=== PATIENT | female | born 1990 | race Caucasian/White ===

== ENCOUNTER 2016-09-30 14:13 | Outpatient (CLI) | payer OTHER ==
[~2016-09-30] VITALS: Ht 162.6 cm; Wt 84.6 kg
[~2016-09-30 14:13] MED LIST: CHOL100062 PO; IBUP-1542 PO
[2016-09-30 14:39] VITALS: Ht 162.6 cm; Wt 84.6 kg
[2016-09-30 14:40] VITALS: BP 119/69; PULSE 91; RESP 20
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
== END 2016-09-30 16:00 | disposition home or self-care (01) ==
LOC: OBT 14:13 → OBG 14:16 → OBT 16:00
PROVIDERS: ATTEND Obstetrics & Gynecology
DX: O9A.213 Injury, poisoning and certain other consequences of external causes complicating pregnancy, third trimester (principal); Z3A.33 33 weeks gestation of pregnancy
CPT/HCPCS: 76818; Z7500; G0463

== ENCOUNTER 2016-10-31 10:27 | Outpatient (CLI) | payer OTHER ==
[~2016-10-31] VITALS: Ht 154.9 cm; Wt 90.2 kg
--- NOTE | 2016-10-31 10:55 | RADRPT ---
PROCEDURE: US OB biophysical profile. CLINICAL INDICATION: decreased movements, pain TECHNIQUE: Multiple sonographic images of the pelvis were obtained. The images were reviewed on a PACS workstation. COMPARISON: 09/30/16 FINDINGS: There is a single viable intrauterine gestation. Cardiac activity is present with 148 beats per min nava. There is a vertex presentation. The placenta is posterior. There is no evidence of placental abruption. There is a normal amount of amniotic fluid with an ALBERTA = 16.7 cm. Biophysical profile: movement 2/2 tone 2/2. breathing 2/2 ALBERTA 2/2 Total 09/13 RPTAT: AA . IMPRESSION: Normal biophysical profile. . .Ton Joy MD, MD Date Time Electronically viewed and signed by .Ton Joy MD, MD on 10/31/2016 10:54 .S/
[2016-10-31 11:07] VITALS: BP 127/81; PULSE 84; RESP 18; Ht 154.9 cm; Wt 90.2 kg
[2016-10-31] MEDS ORDERED: FERR325T5 PO (11:11)
[2016-10-31] MEDS ORDERED: CHOL400C PO (11:11)
[2016-10-31] MEDS ORDERED: DOCO200C5 PO (11:11)
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
== END 2016-10-31 11:55 | disposition home or self-care (01) ==
LOC: L-D 10:27 → OBT 10:27
PROVIDERS: ATTEND Obstetrics & Gynecology
DX: O36.8130 Decreased fetal movements, third trimester, not applicable or unspecified (principal); Z3A.37 37 weeks gestation of pregnancy
CPT/HCPCS: 76818; Z7500; G0463

== ENCOUNTER 2016-11-07 13:16 | Inpatient (IN) | payer OTHER ==
[~2016-11-07] VITALS: Ht 154.9 cm; Wt 90.5 kg
[~2016-11-07 13:16] MED LIST changes: -CHOL100062 PO; +CHOL400C PO; +DOCO200C5 PO; +FERR325T5 PO; -IBUP-1542 PO
[2016-11-07 13:31] VITALS: Ht 154.9 cm; Wt 90.5 kg
[2016-11-07 13:32] VITALS: BP 125/79; PULSE 94
[2016-11-07 14:03] LABS: BASOPHILS % 0.3 % (0.0-2.0); EOSINOPHILS % 0.4 % (0.0-7.0); HEMATOCRIT 36.9 % (37.0-47.0); HEMOGLOBIN 12.4 g/dl (12.0-16.0); LYMPHOCYTES # 1.2 10^3/ul (0.8-2.9); LYMPHOCYTES % 16.9 % (15.0-51.0); MEAN CORPUSCULAR HEMOGLOBIN 28.8 pg (29.0-33.0); MEAN CORPUSCULAR HGB CONC 33.6 g/dl (32.0-37.0); MEAN CORPUSCULAR VOLUME 85.6 fl (82.0-101.0); MEAN PLATELET VOLUME 12.7 fl (7.4-10.4); MONOCYTE # 0.7 10^3/ul (0.3-0.9); MONOCYTES % 10.6 % (0.0-11.0); NEUTROPHIL # 4.9 10^3/ul (1.6-7.5); NEUTROPHILS % 71.2 % (39.0-77.0); PLATELET COUNT 141 10^3/UL (140-415); RED BLOOD COUNT 4.31 10^6/ul (4.20-5.40); RED CELL DISTRIBUTION WIDTH 13.9 % (11.5-14.5); WHITE BLOOD COUNT 6.9 10^3/ul (4.8-10.8)
[2016-11-07 14:24] LABS: ALBUMIN 3.3 g/dl (3.3-4.9); ALBUMIN/GLOBULIN RATIO 1.06; BILIRUBIN,INDIRECT 0.1 mg/dl (0-1.1); BILIRUBIN,TOTAL 0.1 mg/dl (0.2-1.3); CALCIUM 9.2 mg/dl (8.4-10.2); CREATININE 0.6 mg/dl (0.44-1.00); POTASSIUM 3.8 mmol/L (3.5-5.1); TOTAL PROTEIN 6.4 g/dl (6.1-8.1); URIC ACID 6.5 mg/dl (3.1-7.9)
[2016-11-07 17:31] LABS: ADD UMIC YES; UR ASCORBIC ACID NEGATIVE (NEGATIVE); UR BACTERIA FEW /HPF (NONE SEEN); UR BILIRUBIN (Dip) NEGATIVE (NEGATIVE); UR BLOOD (Dip) NEGATIVE (NEGATIVE); UR CLARITY SLIGHTLY CLOUDY (CLEAR); UR COLOR YELLOW (YELLOW); UR GLUCOSE (Dip) NEGATIVE (NEGATIVE); UR KETONES (Dip) NEGATIVE (NEGATIVE); UR LEUKOCYTE ESTERASE (Dip) 3+ Leu/ul (NEGATIVE); UR MUCUS FEW /HPF (NONE SEEN); UR NITRITE (Dip) NEGATIVE (NEGATIVE); UR RBC 1 /HPF (0-5); UR SPECIFIC GRAVITY (Dip) 1.014 (1.003-1.030); UR SQUAMOUS EPITHELIAL CELL FEW /HPF (FEW); UR TOTAL PROTEIN (Dip) NEGATIVE (NEGATIVE); UR UROBILINOGEN (Dip) NEGATIVE (NEGATIVE)
[2016-11-07] MEDS: LACTATED RINGER'S 1,000 ML IV SCH ×3 (17:59→23:16)
[2016-11-07] MEDS ORDERED: CARBOPROST 250 MCG INJ IM PRN ×2 (18:00→23:30)
[2016-11-07] MEDS ORDERED: OXYTOCIN 30 UNITS/LR 500 ML IV PRN ×2 (18:00→23:30)
[2016-11-07] MEDS ORDERED: CEFAZOLIN 2 GM/50 ML (PMX) 50 ML IV SCH (18:00)
[2016-11-07] MEDS ORDERED: MISOPROSTOL 200 MCG TAB PR PRN ×2 (18:00→23:30)
[2016-11-07] MEDS ORDERED: METHYLERGONOVINE 0.2 MG INJ IM PRN ×2 (18:00→23:30)
[2016-11-07] MEDS ORDERED: OXYTOCIN 30 UNITS/LR 500 ML IV SCH (18:00)
[2016-11-07 18:34] LABS: BASOPHILS % 0.3 % (0.0-2.0); EOSINOPHILS % 0.3 % (0.0-7.0); HEMOGLOBIN 12.3 g/dl (12.0-16.0); LYMPHOCYTES # 1.6 10^3/ul (0.8-2.9); MEAN CORPUSCULAR HEMOGLOBIN 28.9 pg (29.0-33.0); MEAN CORPUSCULAR HGB CONC 33.2 g/dl (32.0-37.0); MEAN CORPUSCULAR VOLUME 86.9 fl (82.0-101.0); MEAN PLATELET VOLUME 12.7 fl (7.4-10.4); MONOCYTE # 0.6 10^3/ul (0.3-0.9); MONOCYTES % 7.3 % (0.0-11.0); NEUTROPHIL # 5.6 10^3/ul (1.6-7.5); NEUTROPHILS % 71.6 % (39.0-77.0); PLATELET COUNT 154 10^3/UL (140-415); RED BLOOD COUNT 4.26 10^6/ul (4.20-5.40); RED CELL DISTRIBUTION WIDTH 14.2 % (11.5-14.5); WHITE BLOOD COUNT 7.8 10^3/ul (4.8-10.8)
--- NOTE | 2016-11-07 18:53 | HP ---
Date/Time of Note Date/Time of Note DATE: 11/07/16 TIME: 18:50 OB - History Hx of Present Chief Complaint: contractions Estimated Due Date: Nov 15, 2016 : 3 Para: 1 Spontaneous : 0 Therapeutic : 1 Care: Good Care Ultrasounds: Normal mid trimester US Obstetrical Complications: None Medical Complications: None Past Family/Social History * Past Medical, Surgical, Family and Obstetric Histories reviewed from chart. GBS Status: Positive OB Admission Exam Vital Signs Vital Signs Vital Signs Date Time Temp Pulse Resp B/P Pulse Ox O2 Delivery O2 Flow Rate FiO2 11/07/16 13:32 98.1 94 125/79 Physical Exam HEENT: WNL Heart: Rhythm Normal Lungs: Clear, Equal Abdomen: WNL Extremities: Normal Reflexes: Normal Heart Rate: 130's Accelerations: Accelerations Present Decelerations: No Decelerations Varibility: Moderate Contractions on Admission: < 5 Minutes Apart Last 72 hours Lab Results CBC & BMP 11/07/16 13:50 11/07/16 18:03 Liver Function Test 11/07/16 13:50 Alanine Aminotransferase (ALT/SGPT) 32 Albumin 3.3 Alkaline Phosphatase 237 H Aspartate Amino Transf (AST/SGOT) 26 Direct Bilirubin 0.00 Total Protein 6.4 OB Assessment/Plan Reason for admission: section Plan: Section YSABEL ELLIOTT MD Nov 07, 2016 18:53
[2016-11-07 18:55] LABS: INR 0.91; PROTIME 12.3 Sec (12.2-14.2)
[2016-11-07 19:11] LABS: PARTIAL THROMBOPLASTIN TIME 26.4 Sec (25.0-35.0)
[2016-11-07] MEDS ORDERED: morphine SULFATE/PF (10 MG/10 ML) INJ ONE (19:29)
[2016-11-07] MEDS ORDERED: FENTAnyl 50 MCG/ML VIAL ONE (19:29)
[2016-11-07] MEDS ORDERED: PHENYLephrine (100 MCG/ML) 5ML SYG ONE (19:30)
[2016-11-07] MEDS ORDERED: OXYTOCIN 10 UNIT INJ ONE (19:58)
[2016-11-07] MEDS ORDERED: ONDANSETRON 4 MG INJ ONE (20:03)
[2016-11-07] MEDS ORDERED: ZOLPIDEM 5 MG TAB PO PRN (20:30)
[2016-11-07] MEDS ORDERED: NALOXONE (0.4 MG/ML) INJ IV PRN (20:30)
[2016-11-07] MEDS ORDERED: ONDANSETRON 4 MG INJ IV PRN (20:30)
[2016-11-07] MEDS ORDERED: HYDROmorphONE 1 MG/ML SYG IV PRN ×2 (20:30)
[2016-11-07] MEDS ORDERED: DIPHENHYDRAMINE 50 MG INJ IV PRN (20:30)
--- NOTE | 2016-11-07 20:52 | SIPON ---
Date/Time of Note Date/Time of Note DATE: 11/07/16 TIME: 20:49 Operative Report Preoperative Diagnosis Previous c/s contractions Postoperative Diagnosis Same, pelvic adhesions Operation/Procedure Performed Repeat c/s and lysis of adhesions Surgeon Ysabel Elliott MD appeals assistant Ana Maria Deng MD Anesthesia: spinal Estimated blood loss: other (500 ml) Transfusion Required none Specimen placenta Grafts/Implants none Complications none YSABEL ELLIOTT MD Nov 07, 2016 20:52
[2016-11-07] MEDS: KETOROLAC 30 MG INJ IV PRN (23:10)
[2016-11-07] MEDS ORDERED: OXYTOCIN 30 UNITS/LR 500 ML IV ONE (23:22)
[2016-11-07] MEDS ORDERED: LANOLIN 7 GM TUBE TOP PRN (23:30)
[2016-11-07] MEDS ORDERED: OXYCODONE/ACETAMINOPHEN (5/325) TAB PO PRN ×2 (23:30)
[2016-11-07] MEDS: OXYTOCIN 30 UNITS/LR 500 ML IV SCH (23:31)
[2016-11-07 23:40] VITALS: BP 136/81; PULSE 63; RESP 18
[2016-11-08 00:40] VITALS: BP 131/79; PULSE 69; RESP 19
--- NOTE | 2016-11-08 03:22 | OPR ---
DATE OF OPERATION: 11/07/2016 PREOPERATIVE DIAGNOSIS: at 38 weeks and 6 days with previous section and contractions. POSTOPERATIVE DIAGNOSES: 1. at 38 weeks and 6 days with previous section and contractions. 2. Pelvic adhesions. OPERATION PERFORMED: 1. Repeat low transverse section. 2. Lysis of adhesions. SURGEON: Tenzin Montiel MD COREMAKING MACHINE OPERATOR: Ana Maria Deng MD ANESTHESIA: Spinal. ANESTHESIOLOGIST: Leonidas Arroyo MD OPERATIVE PROCEDURE: Patient was taken to the operating room and placed on the operating table. After successful spinal anesthesia was given, the patient was placed in supine position. The area was prepared and draped in the usual sterile fashion. Spinal anesthesia was assessed and was satisfactory. Using a scalpel, a Pfannenstiel incision was made about 2 fingerbreadths above the symphysis pubis. The incision was carried to the fascia. The fascia was incised and extended bilaterally with Llanos scissors. Two Krishan's were used to separate the fascia from the muscle. The muscle was dissected down to peritoneum. The peritoneum was secured with Kellys and incised with Metzenbaum scissors. Upon entering the peritoneal cavity, dense pelvic adhesions were noted involving the anterior aspect of the uterus. In order to access the lower segment of the uterus, sharp lysis of adhesion was performed with close attention to the bladder and the bowel. Using a scalpel, a small transverse incision was made on the lower segment of the uterus. Upon entering the uterine cavity, [____] were inserted to extend the incision bilaterally curved up. Baby was delivered from cephalic presentation. After suction clear of amniotic fluid, the baby was handed off to the team in attendance. Apgars were 8 and 9. The placenta was delivered without difficulty. The uterus was closed with number 1 Monocryl continuous locked. After assuring hemostasis, the muscle was reapproximated with 2-0 Vicryl continuous. The fascia was closed with number 1 Vicryl continuous in 2 segments. Subcutaneous tissue was reapproximated with 2-0 plain. The skin was closed with mary anne. Estimated blood loss was 500 mL. All counts were correct. Dictated By: Tenzin Montiel MD /daysi/vivian /Document#: [id number]
[2016-11-08] MEDS: OXYTOCIN 30 UNITS/LR 500 ML IV SCH (03:46)
[2016-11-08 04:00] VITALS: BP 126/70; PULSE 79; RESP 18
[2016-11-08] MEDS: IBUPROFEN 800 MG TAB PO SCH ×3 (05:59→22:21)
[2016-11-08] MEDS: LACTATED RINGER'S 1,000 ML IV SCH ×2 (07:51→15:59)
[2016-11-08 07:53] VITALS: BP 121/75; PULSE 77; RESP 18
[2016-11-08] MEDS: SENNA/DOCUSATE NA (8.6MG/50MG) TAB PO SCH ×2 (08:34→21:09)
[2016-11-08 11:38] LABS: BASOPHILS % 0.4 % (0.0-2.0); EOSINOPHILS # 0.1 10^3/ul (0.0-0.5); EOSINOPHILS % 0.6 % (0.0-7.0); HEMATOCRIT 31.6 % (37.0-47.0); HEMOGLOBIN 10.1 g/dl (12.0-16.0); LYMPHOCYTES # 1.1 10^3/ul (0.8-2.9); LYMPHOCYTES % 13.4 % (15.0-51.0); MEAN CORPUSCULAR HEMOGLOBIN 28.1 pg (29.0-33.0); MEAN PLATELET VOLUME 12.9 fl (7.4-10.4); MONOCYTE # 0.6 10^3/ul (0.3-0.9); MONOCYTES % 7.2 % (0.0-11.0); NEUTROPHIL # 6.6 10^3/ul (1.6-7.5); NEUTROPHILS % 77.9 % (39.0-77.0); PLATELET COUNT 136 10^3/UL (140-415); RED BLOOD COUNT 3.59 10^6/ul (4.20-5.40); RED CELL DISTRIBUTION WIDTH 14.3 % (11.5-14.5); WHITE BLOOD COUNT 8.5 10^3/ul (4.8-10.8)
[2016-11-08 12:27] VITALS: BP 121/75; PULSE 76; RESP 18
--- NOTE | 2016-11-08 15:08 | QN ---
Documentation Comment No complaint Afebrile VSS Abdomen soft POD #1 Stable Ambulate advance diet. YSABEL ELLIOTT MD Nov 08, 2016 15:08
[2016-11-08] MEDS: KETOROLAC 30 MG INJ IV PRN (15:58)
[2016-11-08 16:00] VITALS: BP 132/80; PULSE 88; RESP 18
[2016-11-08 20:05] VITALS: BP 123/75; PULSE 62; RESP 17
[2016-11-09 03:50] VITALS: BP 113/73; PULSE 70; RESP 17
[2016-11-09] MEDS: IBUPROFEN 800 MG TAB PO SCH ×3 (05:44→21:31)
[2016-11-09 08:00] VITALS: BP 118/84; PULSE 81; RESP 18
[2016-11-09] MEDS: SENNA/DOCUSATE NA (8.6MG/50MG) TAB PO SCH ×2 (09:43→21:31)
[2016-11-09 16:05] VITALS: BP 124/80; PULSE 73; RESP 18
[2016-11-09 20:30] VITALS: BP 134/80; PULSE 80; RESP 18
--- NOTE | 2016-11-09 21:05 | DS ---
Date/Time of Note Date/Time of Note DATE: 11/09/16 TIME: 21:04 Obstetrical Discharge Record Final Diagnosis Final Diagnosis: Term delivered Section Section: Repeat Condition on Discharge Physical Assessment Voiding: Yes Bowel Movement: Yes Breast: Soft, non-tender, Filling Fundus: Firm Abdomen and Incision: Incision intact Calf Tenderness: No Patient Condition: Stable YSABEL ELLIOTT MD Nov 09, 2016 21:05
[2016-11-10 04:00] VITALS: BP 115/73; PULSE 67; RESP 18
[2016-11-10] MEDS: IBUPROFEN 800 MG TAB PO SCH ×2 (06:05→13:59)
[2016-11-10 07:50] VITALS: BP 109/69; PULSE 74; RESP 16
[2016-11-10] MEDS: SENNA/DOCUSATE NA (8.6MG/50MG) TAB PO SCH (08:59)
[2016-11-10] MEDS ORDERED: DIPHTH/TET/ACEL PERTUSS (ADULT) 0.5 ML VIAL IM* ONE (09:00)
== END 2016-11-10 14:45 | disposition home or self-care (01) | DRG 766 ==
LOC: OBT 13:16 → L-D 13:16 → OBT 17:40 → L-D 17:40 → PP1 23:30
PROVIDERS: ADMIT Obstetrics & Gynecology; ATTEND Obstetrics & Gynecology
PROC: 10D00Z1 Extraction of Products of Conception, Low, Open Approach (ICD-10-PCS; principal; 2016-11-07)
PROC: 3E0P3VZ Introduction of Hormone into Female Reproductive, Percutaneous Approach (ICD-10-PCS; 2016-11-07)
DX: O34.211 Maternal care for low transverse scar from previous cesarean delivery (principal); K66.0 Peritoneal adhesions (postprocedural) (postinfection); O99.62 Diseases of the digestive system complicating childbirth; Z37.0 Single live birth; Z3A.38 38 weeks gestation of pregnancy
CPT/HCPCS: 80053; 81001; 84560; 85025; 85610; 85730; 86592; 86850; 86900; 86901; 87340; 90715; 94760; 99464; G0463; J0690; J1885; J2274; J2370; J2405; J2590; J3010; J7120